=== PATIENT | female | born 1995 | race Caucasian/White ===

== ENCOUNTER 2019-03-01 19:06 | Emergency (ER) | payer OTHER ==
[2019-03-01 20:02] LABS: Bilirubin Negative (Negative); Blood, Urine Negative (Negative); Clarity Hazy (Clear); Glucose, Urine (Dipstick) Negative (Negative); Leukocyte Moderate (Negative); Nitrite Negative (Negative); Protein, Urine (Dipstick) Negative (Neg-Trace); Specific Gravity, Urine 1.025 (1.005-1.030); Urobilinogen 0.2 mg/dL (0.2-1.0)
[2019-03-01 20:10] LABS: Hemoglobin 9.9 g/dL (12.0-16.0); Mean Corpuscular HGB CONC 30.1 g/dL (32.0-36.0); Mean Corpuscular Hemoglobin 20.7 pg (27.0-31.0); Mean Corpuscular Volume 68.5 fL (78.0-98.0); Mean Platelet Volume 6.8 fL (7.4-10.4); Platelet Count 242 thou/uL (130-400); RBC Distribution Width 14.2 % (11.5-14.5); Red Blood Cell (RBC) Count 4.81 mill/uL (4.20-5.40); White Blood Cell (WBC) Count 8.9 thou/uL (4.8-10.8)
[2019-03-01 20:13] LABS: ALT (SGPT) 16 U/L (8-55); AST (SGOT) 14 U/L (5-34); Albumin 4.7 g/dL (3.5-5.0); Alkaline Phosphatase 93 U/L (40-150); Anion Gap 15 mmol/L (10-20); BUN (Urea Nitrogen) 12 mg/dL (7.0-18.7); Bilirubin, Total 0.3 mg/dL (0.2-1.2); Calc. Creatinine Clearance 0 mL/min (70-130); Calcium 9.5 mg/dL (7.8-10.44); Carbon Dioxide 21 mmol/L (22-29); Chloride 106 mmol/L (98-107); Estimated GFR-MDRD Greater than 90; Globulin 3.4 g/dL (2.4-3.5); Glucose 90 mg/dL (70-105); Potassium 3.4 mmol/L (3.5-5.1); Protein, Total 8.1 g/dL (6.0-8.3); Sodium 139 mmol/L (136-145)
[2019-03-01 20:20] LABS: Bacteria/HPF Rare-Few HPF (None Seen); Other Microscopic Description 1+ MUCUS; RBC/HPF 0-3 HPF (0-3); Squamous Epithelial 0-3 HPF (0-3); Transitional Epithelial 0-3 HPF (0-3); WBC/HPF 21-50 HPF (0-3)
[2019-03-01 20:21] LABS: #Eosinphils 0.3 thou/uL (0.0-0.7); #Monocytes 0.5 thou/uL (0.11-0.59); %Basophils 0.6 % (0.0-1.0); %Eosinophils 3.6 % (0.0-10.0); %Lymphocytes 11.5 % (21.0-51.0); %Monocytes 5.9 % (0.0-10.0); %Neutrophils 78.5 % (42.0-75.0); MDiff Complete? YES; Microcytosis MARKED = >30 cells (100X) (0-5/hpf); Reflex for Review?? NO
[2019-03-01 20:30] LABS: Thyroid Stimulating Hormone 0.9861 uIU/mL (0.35-4.94)
[2019-03-01] MEDS ORDERED: cefTRIAXone\\ROCEPHIN 500 MG VIAL ONE (20:51)
[2019-03-01] MEDS ORDERED: Doxycycline 100 MG CAP ONE (20:51)
[2019-03-02 12:45] LABS: HIV (1/2) Antibody/Antigen Non-Reactive (NonReactive); HIV 1/2 INDEX 0.16 S/CO (<1.00)
[2019-03-02 12:46] LABS: Syphilis Antibody Nonreactive (Nonreactive); Syphilis Antibody Index 0.08 S/CO (<1.00 Non-Reactive)
[2019-03-02 14:27] LABS: Ref Lab Test Ordered BABESIA AB; Reference Lab Name LABCORP
[2019-03-02 14:29] LABS: Ref Lab Test Ordered HGE IGG/IGM; Reference Lab Name LABCORP
[2019-03-03 23:03] LABS: Chlamydia by PCR Not Detected (NotDetected); GC by PCR Not Detected (NotDetected)
[2019-03-05 11:12] LABS: Lyme IgG/IgM AB <0.91 ISR (0.00-0.90)
[2019-03-06 03:09] LABS: RMSF IgG (EIA) Negative (Negative); RMSF IgM 0.51 index (0.00-0.89)
== END 2019-03-01 21:05 | disposition home or self-care (01) ==
LOC: BURERS 19:06
DX: N72 Inflammatory disease of cervix uteri (principal); E86.0 Dehydration; R21 Rash and other nonspecific skin eruption; F17.290 Nicotine dependence, other tobacco product, uncomplicated
CPT/HCPCS: 80053; 81003; 81015; 84443; 85025; 85652; 86140; 86618; 86757; 86780; 87040; 87086; 87389; 87480; 87491; 87510; 87591; 87660; 96360; 96372; J0696

== ENCOUNTER 2019-10-11 06:34 | Emergency (ER) | payer BC, OTHER ==
[2019-10-11] MEDS ORDERED: Ibuprofen 800 MG TAB ONE (06:48)
[2019-10-11] MEDS ORDERED: Ondansetron ODT 4 MG TAB ONE (06:48)
[2019-10-11 06:55] LABS: Bilirubin Negative (Negative); Blood, Urine Moderate (Negative); Clarity Slightly Cloudy (Clear); Glucose, Urine (Dipstick) Negative (Negative); Leukocyte Large (Negative); Nitrite Negative (Negative); Protein, Urine (Dipstick) 30 mg/dL (Neg-Trace); Urobilinogen 0.2 mg/dL (Less than 2)
[2019-10-11 06:58] LABS: Pregnancy Test - Urine (BHCG) Negative (Negative); Pregu Control Background? CLEAR/WHITE (CLR/WHITE); Pregu Control Bar Appear? YES (CONTROL BAR)
[2019-10-11 07:03] LABS: Bacteria/HPF 1+ HPF (None Seen); Oval Fat Bodies/HPF Rare HPF (None Seen); Renal Epithelial 0-3 HPF (None Seen); Squamous Epithelial 0-3 HPF (0-3)
[2019-10-11 07:11] LABS: Specific Gravity 1.015 (1.002-1.036)
== END 2019-10-11 07:30 | disposition home or self-care (01) ==
LOC: BURERS 06:34
DX: N10 Acute pyelonephritis (principal); F32.9 Major depressive disorder, single episode, unspecified; F17.290 Nicotine dependence, other tobacco product, uncomplicated
CPT/HCPCS: 81003; 81015; 81025; 87077; 87086; 99284; Q0162

== ENCOUNTER 2020-05-07 10:51 | Outpatient (CLI) | payer OTHER ==
--- NOTE | 2020-05-07 20:21 | RAD ---
RIGHT FOOT THREE VIEWS: 05/07/20 No fracture or periosteal reaction was seen. The joints of the foot appear normal. IMPRESSION: No acute findings. POS: HOME
--- NOTE | 2020-05-07 20:22 | RAD ---
RIGHT ANKLE THREE VIEWS: 05/07/20 Some soft tissue swelling is seen around the ankle, but the underlying bones all appeared intact. No fracture was seen. The ankle joint appears normal. IMPRESSION: No acute bony changes. POS: HOME
== END 2020-05-07 10:52 | disposition home or self-care (01) ==
LOC: BURRAD 10:51
PROVIDERS: ATTEND Family Medicine
DX: S90.31XD Contusion of right foot, subsequent encounter (principal); M25.571 Pain in right ankle and joints of right foot

== ENCOUNTER 2020-09-22 07:15 | Emergency (ER) | payer OTHER ==
[2020-09-22] MEDS ORDERED: Cyclobenzaprine 10 MG TAB ONE (08:47)
--- NOTE | 2020-09-22 08:58 | CT ---
CT OF THE BRAIN WITHOUT CONTRAST: DATE: 09/22/2020. COMPARISON: Comparison is made with the prior exam dated 08/30/2013. FINDINGS: There has been no adverse interval change. The ventricles are normal in size with no shift. No intr acranial bleeding, extraaxial hematoma, or evidence of old injury was found. The skull appears intac t. The visible paranasal sinuses are clear. IMPRESSION: No significant intracranial findings. Preliminary report called to [place] in ER at 0827 on 09/22/2020. CODE CR POS: HOME
--- NOTE | 2020-09-22 09:10 | CT ---
CT OF THE CERVICAL SPINE: DATE: 09/22/2020. FINDINGS: Spiral CT of the cervical spine was done for evaluation of remote trauma with continued pain. Mild scoliosis is present in the cervicothoracic region. The cervical curve is convex left. There i s straightening of the cervical spine which may be due to muscle spasm. No fracture, dislocation, di sk space narrowing, or soft tissue swelling was seen at any cervical level. The C1 to dens distance is normal. No remote trauma was suggested. There is no sign of significant foraminal or central can al stenosis. The surrounding soft tissues showed no acute changes. There is mild prominence of cerv ical lymph nodes bilaterally which is not uncommon in this age group. IMPRESSION: Straightening and scoliosis of the cervical spine. This could be due to muscle spasm. No acute bony findings of concern. Preliminary report called to [place] in the ER at 0827 on 09/22/2020. CODE CR POS: HOME
== END 2020-09-22 09:10 | disposition home or self-care (01) ==
LOC: BURERS 07:15
DX: G43.909 Migraine, unspecified, not intractable, without status migrainosus (principal); M54.2 Cervicalgia; F41.9 Anxiety disorder, unspecified; F32.9 Major depressive disorder, single episode, unspecified; F43.10 Post-traumatic stress disorder, unspecified; F17.290 Nicotine dependence, other tobacco product, uncomplicated
CPT/HCPCS: 70450; 72125

== ENCOUNTER 2021-02-16 16:35 | Outpatient (CLI) | payer BC, OTHER | END 2021-02-16 16:36 | disposition home or self-care (01) | LOC: BURRAD 16:35 | PROVIDERS: ATTEND Family Medicine | DX: R05 Cough (principal); R50.9 Fever, unspecified | CPT/HCPCS: 71046 ==